=== PATIENT | female | born 1945 | race American Indian/Alaskan Native ===

== ENCOUNTER 2018-10-06 11:15 | Outpatient (CLI) | payer MEDICARE ==
--- NOTE | 2018-10-06 12:49 | Mammography Report ---
BONE DEXA:10/06/18 11:15:00 CLINICAL: Postmenopausal. COMPARISON: 04/30/16 TECHNIQUE: Two site bone DEXA performed on an Hologic scanner. FINDINGS: The average BMD of the lumbar spine L1-L4 is 1.004g/cm squared with a T-score of -1.3 and a Z-score of +1.1. This compares to 0.953g/cm squared on the last exam and represents a +5.4% change from the previous baseline. The average BMD of the left hip is 0.855g/cm squared with a T-score of -1.1 and a Z-score of 0. This compares to 0.830g/cm squared on the last exam and represents a +3.0% change from the previous baseline. IMPRESSION: 1. WHO classification: Osteopenia with increased fracture risk based on L-spine and left to measurements. 2. Improvement in both spine and left hip BMD compared to the previous exam. RECOMMENDATION: Clinical correlation and routine screening. DEFINITIONS: BMD = Bone Mineral Density T-score = BMD related to mean peak bone mass of young adult (mean expressed in Standard Deviation) Z-score = Age matched BMD expressed in SD World Health Organization (WHO) Diagnostic Criteria Normal T-score > -1 SD Osteopenia T-score between -1 and -2.4 SD Osteoporosis T-score -2.5 SD or below NOTE: BMD is not the only risk factor for fracture; also consider factors such as the patient's age, risk of falling, previous osteoporotic fracture, family history of osteoporotic fractures, current smoker, and low body weight. Z-scores are not calculated if >80 years of age.
== END 2018-10-06 11:16 | disposition home or self-care (01) ==
LOC: SPVWC 11:15
PROVIDERS: ATTEND Family Medicine
DX: M81.0 Age-related osteoporosis without current pathological fracture (principal); M85.88 Other specified disorders of bone density and structure, other site; Z78.0 Asymptomatic menopausal state
CPT/HCPCS: 77080